=== PATIENT | male | born 1965 | race Caucasian/White ===

== ENCOUNTER 2016-08-07 07:31 | Emergency (ER) | payer MEDICAID ==
[~2016-08-07] VITALS: Ht 165.1 cm; Wt 91.5 kg
[~2016-08-07 07:31] MED LIST: ASPI-664 PO; LORA-441 PO
[2016-08-07 07:34] VITALS: Ht 165.1 cm; Wt 91.5 kg
[2016-08-07] MEDS ORDERED: CARB15DR48 LEFT EAR (09:28)
--- NOTE | 2016-08-07 09:33 | ERD ---
ER Documentation Chief Complaint Date/Time DATE: 08/07/16 TIME: 09:29 Chief Complaint LT EAR PAIN CONGESTION X 4DAYS HPI Patient is a 50-year-old male who presents to the emergency department with left ear difficulty hearing. Patient states he started having difficulty hearing 4 days ago. Patient does report using Q-tips. Patient denies any pain. 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 Patient denies any fevers, chills, nausea, vomiting, cough, rhinorrhea, throat pain. ROS All systems reviewed and are negative except as per history of present illness. Medications Home Meds Active Scripts Carbamide Peroxide* (Debrox*) 6.5% - 15 Ml Drops, 10 DROP LEFT EAR BID, #1 BOTTLE Prov:SAHARA GARCÍA PA-C 08/07/16 Lorazepam* (Ativan*) 0.5 Mg Tablet, 0.5 MG PO Q8H Y for ANXIETY, #10 TAB Prov:BEV ANSARI 12/02/15 Aspirin* (Aspirin* EC) 81 Mg Tablet.dr, 81 MG PO DAILY, #30 TAB Prov:DAXA ESPARZA MD 08/18/15 Allergies Allergies: Coded Allergies: No Known Allergies (Verified Allergy, Mild, 08/07/16) PMhx/Soc Medical and Surgical Hx: pt denies Surgical Hx History of Surgery: No Anesthesia Reaction: No Hx Neurological Disorder: No Hx Respiratory Disorders: No Hx Cardiac Disorders: Yes (hypercholesterolemia) Hx Psychiatric Problems: No Hx Miscellaneous Medical Probl: Yes Hx Alcohol Use: Yes (socially) Hx Substance Use: No Hx Tobacco Use: No Smoking Status: Never smoker FmHx Family History: No diabetes Physical Exam Vitals Vital Signs Date Time Temp Pulse Resp B/P Pulse Ox O2 Delivery O2 Flow Rate FiO2 08/07/16 07:34 97.9 68 19 135/66 99 Physical Exam GENERAL: Well-developed, well-nourished male. Appears in no acute distress. HEAD: Normocephalic, atraumatic. No deformities or ecchymosis. EYE: Pupils equal, round, and reactive to light. EOMs intact. No conjunctival erythema. No eye discharge. ENT: Right external ear deformity noted. Left auditory canal noted to have living conserving. Unable to visualize tympanic membrane at this time. Nasal mucosa pink with no discharge. Oropharynx is pink without any tonsillar erythema or exudates. No uvula deviation. No kissing tonsils. NECK: Supple. No meningismus. Normal ROM of the neck. LUNG: Clear to auscultation bilaterally. No rhonchi, wheezing, rales or coarse breath sounds. HEART: Regular rate and rhythm. No murmurs, rubs or gallops. BACK: No midline tenderness. EXTREMITES: Equal pulses bilaterally. No peripheral clubbing, cyanosis or edema. No unilateral leg swelling. NEUROLOGIC: Alert and oriented to person, place and time. Moving all four extremities. 5/5 strength in all extremities. Normal speech. Steady gait. SKIN: Normal color. Warm and dry. No rashes or lesions. Procedures/MDM MEDICAL DECISION MAKING: This is a 50-year-old male who presents with concerns of decreased hearing out of his left ear 4 days. Vital signs were reviewed. Patient was afebrile. Patient was not hypoxic. Ear exam revealed significant cerumen in the left auditory canal. Initially unable to visualize tympanic membrane. Ear lavage was performed using H20/ hydrogen peroxide mix. No trauma or complications were noted. TM was visualized post-irrigation without any erythema or perforation. Patient reported hearing restored. Upon reexamination, tympanic membrane appeared nonbulging, non erythematous. Given these findings, the patient's presentation is most consistent with cerumen impaction of the L ear, resolved. I have a much lower clinical suspicion for otitis externa, acute otitis media, tympanic membrane perforation, mastoiditis, otic barotrauma, TMJ dysfunction. PRESCRIPTIONS: Debrox DISCHARGE: At this time, patient is stable for discharge and outpatient management. I have instructed the patient to follow-up with his/her primary care physician in 1-2 days. I have discussed with the patient the possibility of needing to see a specialist for further workup and diagnostic studies if the pain persists. I have instructed the patient to promptly return to the ER at any time for any new or worsening symptoms including increased pain, fever, swelling, discharge or hearing loss. The patient and/or family expressed understanding of and agreement with this plan. All questions were answered. Home care instructions were provided. Departure Diagnosis: Primary Impression: Cerumen impaction Laterality: left Qualified Code: H61.22 - Impacted cerumen of left ear Condition: Stable Patient Instructions: Cerumen Impaction, Home Care Referrals: COMMUNITY CLINICS YOU HAVE RECEIVED A MEDICAL SCREENING EXAM AND THE RESULTS INDICATE THAT YOU DO NOT HAVE A CONDITION THAT REQUIRES URGENT TREATMENT IN THE EMERGENCY DEPARTMENT. FURTHER EVALUATION AND TREATMENT OF YOUR CONDITION CAN WAIT UNTIL YOU ARE SEEN IN YOUR DOCTORS OFFICE WITHIN THE NEXT 1-2 DAYS. IT IS YOUR RESPONSIBILITY TO MAKE AN APPOINTMENT FOR FOLOW-UP CARE. IF YOU HAVE A PRIMARY DOCTOR --you should call your primary doctor and schedule an appointment IF YOU DO NOT HAVE A PRIMARY DOCTOR YOU CAN CALL OUR PHYSICIAN REFERRAL HOTLINE AT IF YOU CAN NOT AFFORD TO SEE A PHYSICIAN YOU CAN CHOSE FROM THE FOLLOWING [facility] [address] [facility] [employer] [facility]. [facility] [address] [facility]. [facility] [address] [facility] [facility] [address] [facility] [address] [facility]. [facility] [address] [facility]. [facility] YOU HAVE RECEIVED A MEDICAL SCREENING EXAM AND THE RESULTS INDICATE THAT YOU DO NOT HAVE A CONDITION THAT REQUIRES URGENT TREATMENT IN THE EMERGENCY DEPARTMENT. FURTHER EVALUATION AND TREATMENT OF YOUR CONDITION CAN WAIT UNTIL YOU ARE SEEN IN YOUR DOCTORS OFFICE WITHIN THE NEXT 1-2 DAYS. IT IS YOUR RESPONSIBILITY TO MAKE AN APPOINTMENT FOR FOLOW-UP CARE. IF YOU HAVE A PRIMARY DOCTOR --you should call your primary doctor and schedule and appointment IF YOU DO NOT HAVE A PRIMARY DOCTOR YOU CAN CALL OUR PHYSICIAN REFERRAL HOTLINE AT . IF YOU CAN NOT AFFORD TO SEE A PHYSICIAN YOU CAN CHOSE FROM THE FOLLOWING [facility] INSTITUTIONS: [facility] [address] [place] [address] [facility] [address] [place] [address] [facility] [address] [place] [address] Additional Instructions: Call your primary care doctor TOMORROW for an appointment during the next 1-2 days.See the doctor sooner or return here if your condition worsens before your appointment time. SAHARA GARCÍA PA-C August 07, 2016 09:33
[2016-08-07 10:20] VITALS: BP 139/69; PULSE 77; RESP 18
== END 2016-08-07 10:21 | disposition home or self-care (01) ==
LOC: FTE 07:31
DX: H61.22 Impacted cerumen, left ear (principal)
CPT/HCPCS: 69209; Z7502

== ENCOUNTER 2016-11-10 11:41 | Emergency (ER) | payer MEDICAID ==
[~2016-11-10] VITALS: Ht 167.6 cm; Wt 87.5 kg
[~2016-11-10 11:41] MED LIST changes: +CARB15DR50 LEFT EAR
[2016-11-10 11:44] VITALS: Ht 167.6 cm; Wt 87.5 kg
[2016-11-10] MEDS ORDERED: IPRATROPIUM (NEB) 0.5 MG/2.5 ML AMP NEB STA (12:02)
[2016-11-10] MEDS ORDERED: ALBUTEROL 0.083% (NEB) 2.5 MG/3 ML AMP NEB STA (12:02)
[2016-11-10 12:31] LABS: BASOPHILS % 0.4 % (0.0-2.0); EOSINOPHILS % 0.6 % (0.0-7.0); HEMATOCRIT 41.8 % (42.0-52.0); HEMOGLOBIN 14.8 g/dl (14.0-18.0); LYMPHOCYTES # 2.4 10^3/ul (0.8-2.9); LYMPHOCYTES % 34.1 % (15.0-51.0); MEAN CORPUSCULAR HEMOGLOBIN 31.5 pg (29.0-33.0); MEAN CORPUSCULAR HGB CONC 35.4 g/dl (32.0-37.0); MEAN CORPUSCULAR VOLUME 88.9 fl (82.0-101.0); MEAN PLATELET VOLUME 9.6 fl (7.4-10.4); MONOCYTE # 0.3 10^3/ul (0.3-0.9); NEUTROPHILS % 60.8 % (39.0-77.0); PLATELET COUNT 254 10^3/UL (140-415); WHITE BLOOD COUNT 6.9 10^3/ul (4.8-10.8)
--- NOTE | 2016-11-10 12:53 | RADRPT ---
PROCEDURE: XR Chest. CLINICAL INDICATION: 51-year-old male with chest pain. TECHNIQUE: Single frontal view of the chest was obtained. COMPARISON: None FINDINGS: The soft tissues are normal. The bony elements are normal. The heart, cardiomediastinal silhouette and hilar structures are normal. The pulmonary vasculature is normal. There is a left-sided aorta. The lungs are clear. The costophrenic angles are normal. IMPRESSION: 1. Normal chest x-ray. RPTAT:AAJJ Physician Agnes Date Time Electronically viewed and signed by Physician Agnes on 11/10/2016 12:53 EVAN/
[2016-11-10 12:54] LABS: ANION GAP 15 (8-16); BLOOD UREA NITROGEN 12 mg/dl (7-20); CALCIUM 9.1 mg/dl (8.4-10.2); CARBON DIOXIDE 26 mmol/L (21-31); CHLORIDE 101 mmol/L (97-110); CREATININE 0.83 mg/dl (0.61-1.24); GLUCOSE 203 mg/dl (70-220); SODIUM 138 mmol/L (135-144)
[2016-11-10 13:05] LABS: TROPONIN-I < 0.012 ng/ml (0.00-0.12)
[2016-11-10] MEDS ORDERED: ALBU18HF INHALATION (13:09)
[2016-11-10 13:16] VITALS: BP 140/68; PULSE 78; RESP 18
--- NOTE | 2016-11-10 13:16 | ERD ---
ER Documentation Chief Complaint Date/Time DATE: 11/10/16 TIME: 13:13 Chief Complaint Complains of chest pain that radiates to the back x 1 week HPI conveyor maintenance mechanic used. 51-year-old male no significant past medical history presents with shortness of breath. 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 The patient describes at least 3 months if not longer of on-and-off shortness of breath usually when he is outside or in hot weather. He denies any exertional symptoms no pleuritic pain. He states that in the past he has been told he might have asthma. He is a non-smoker. No recent fevers or chills no weight loss no hemoptysis. Patient only has minimal symptoms currently. The patient had a cardiac workup at [facility] in May including a stress test which was negative. ROS All systems reviewed and are negative except as per history of present illness. Medications Home Meds Active Scripts Albuterol Sulfate* (Ventolin HFA*) 18 Gm Hfa.aer.ad, 2 PUFF INHALATION Q4H, #1 INHALER Prov:AMAYA SHIPMAN MD 11/10/16 Aspirin* (Aspirin* EC) 81 Mg Tablet.dr, 81 MG PO DAILY, #30 TAB Prov:DAXA ESPARZA MD 08/18/15 Discontinued Scripts Carbamide Peroxide* (Debrox*) 6.5% - 15 Ml Drops, 10 DROP LEFT EAR BID, #1 BOTTLE Prov:SAHARA GARCÍA PA-C 08/07/16 Lorazepam* (Ativan*) 0.5 Mg Tablet, 0.5 MG PO Q8H Y for ANXIETY, #10 TAB Prov:BEV ANSARI 12/02/15 Allergies Allergies: Coded Allergies: No Known Allergies (Verified Allergy, Mild, 11/10/16) PMhx/Soc History of Surgery: No Anesthesia Reaction: No Hx Neurological Disorder: No Hx Respiratory Disorders: No Hx Cardiac Disorders: Yes (hypercholesterolemia) Hx Psychiatric Problems: No Hx Miscellaneous Medical Probl: Yes Hx Alcohol Use: Yes (socially) Hx Substance Use: No Hx Tobacco Use: No Smoking Status: Never smoker FmHx Family History: No diabetes Physical Exam Vitals Vital Signs Date Time Temp Pulse Resp B/P Pulse Ox O2 Delivery O2 Flow Rate FiO2 11/10/16 12:14 82 18 96 21 11/10/16 12:12 Nasal Cannula 11/10/16 11:44 98.4 90 20 141/80 97 Physical Exam General: Well developed, well nourished, no acute distress Head: Normocephalic, atraumatic. Eyes: Pupils equally reactive, EOM intact ENT: Moist mucous membranes Neck: Supple, no lymphadenopathy Respiratory: Lungs clear bilaterally, no distress Cardiovascular: RRR, no murmurs, rubs, or gallops Abdominal: Soft, non-tender, non-distended, no peritoneal signs : Deferred MSK: No edema, no unilateral swelling, 5/5 strength Neurologic: Alert and oriented, moving all extremities, normal speech, no focal weakness, no cerebellar signs Skin: No rash Psych: Normal mood Result Diagram: 11/10/16 1208 11/10/16 1208 Results 24 hrs Laboratory Tests Test 11/10/16 12:08 White Blood Count 6.910^3/ul Red Blood Count 4.7010^6/ul Hemoglobin 14.8g/dl Hematocrit 41.8% Mean Corpuscular Volume 88.9fl Mean Corpuscular Hemoglobin 31.5pg Mean Corpuscular Hemoglobin Concent 35.4g/dl Red Cell Distribution Width 12.0% Platelet Count 86431^3/UL Mean Platelet Volume 9.6fl Neutrophils % 60.8% Lymphocytes % 34.1% Monocytes % 4.0% Eosinophils % 0.6% Basophils % 0.4% Nucleated Red Blood Cells % 0.0/100WBC Neutrophils # (Manual) 410^3/ul Lymphocytes # 2.410^3/ul Monocytes # 0.310^3/ul Eosinophils # 0.010^3/ul Basophils # 0.010^3/ul Nucleated Red Blood Cells # 0.010^3/ul Sodium Level 138mmol/L Potassium Level 4.0mmol/L Chloride Level 101mmol/L Carbon Dioxide Level 26mmol/L Anion Gap 15 Blood Urea Nitrogen 12mg/dl Creatinine 0.83mg/dl Glucose Level 203mg/dl Calcium Level 9.1mg/dl Troponin I < 0.012ng/ml Current Medications Medications (Trade) Dose Ordered Sig/Christina Route PRN Reason Start Time Stop Time Status Last Admin Dose Admin Albuterol (Proventil 0.083% (Neb)) 2.5 mg ONCE STAT NEB 11/10/16 12:02 11/10/16 12:03 DC 11/10/16 12:11 Ipratropium [place] (Atrovent 0.02% (Neb)) 0.5 mg ONCE STAT NEB 11/10/16 12:02 11/10/16 12:03 DC 11/10/16 12:11 Procedures/MDM EKG, MONITORS, & DIAGNOSTIC IMAGING: EKG: I reviewed and interpreted a 12-lead EKG. Rhythm: Normal sinus rhythm Ectopy: None Intervals: No abnormalities ST segments: No elevations or depressions T waves: No contiguous inversions Chest x-ray: I reviewed and interpreted a 1 view of the chest Mediastinum: No enlargement Cardiac silhouette: No cardiomegaly Airspace: Clear lung acuna bilaterally without evidence of pneumothorax Bones: No evidence of fracture LAB INTERPRETATION: Negative troponin MEDICAL DECISION MAKING: The patient has intermittent shortness of breath that is nonexertional and usually brought on by warm weather. Unclear etiology but consider possible reactive airway disease versus asthma. However, the patient has clear lungs currently. No clinical signs or symptoms concerning for DVT or pulmonary embolism. The patient had appropriate cardiac screening and risk stratification including provocative testing in May which is reported to be negative. Given my very low clinical concern for cardiac etiology I believe an EKG and single troponin is appropriate. The patient has a low heart score and therefore low missed adverse cardiac event rate. I do not believe that serial troponins or hospitalizations are appropriate at this time given the risk of false positive testing and the fact that the patient recently had negative risk stratification. ER COURSE: The patient was given a breathing treatment. He has subjective improvement. The patient will be started on an inhaler at home as needed. 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 I kept the patient and/or family informed of laboratory and diagnostic imaging results throughout the emergency room course. DISPOSITION PLAN: We discussed follow up with the patient's primary care doctor within 24 to 48 hours as needed. We also discussed return to the emergency room for worsening symptoms or worsening condition. Outpatient referral: [None required] Discharge Medications: Albuterol Departure Diagnosis: Primary Impression: Shortness of breath Condition: Stable Patient Instructions: Coping with Shortness of Breath: Controlling Stress Referrals: [facility] Usted se donnelly hecho un examen mdico de control que le indica que no est en js condicin que requiera tratamiento urgente en el Departamento de Emergencia. Un estudio ms profundo y el tratamiento de bella condicin pueden esperar sin ningn riesgo hasta que usted sea atendida/o en el consultorio de bella mdico o js cl lucila. Es responsabilidad suya arreglar js emilee para el seguimiento del cristian. MANEJO DE CONDICIONES NO URGENTES EN EL FUTURO 1) Si usted tiene un mdico de atencin primaria: Usted debera llamar a bella mdico de atencin primaria antes de venir al departamento de emergencia. Despus de las horas de consultorio, bella doctor o bella asociado/a est disponible por telfono. El mdico o enfermero de crystal en el servicio telefnico puede asesorarle por eddie medio para atender el problema, o cristian contrario se puede programar js emilee. 2) Si usted no tiene un mdico de atencin primaria: Llame al mdico o clnica de referencia que aparece abajo delfino las horas de consultorio para hacer js emilee para que le vean. CLINICAS: [facility] [phone] [facility] [phone] [facility] [phone] [address] [facility]. [facility] [phone] [address] [facility] [address] [place] [id number] [phone] [facility]. [phone] [address] [facility] () Usted se donnelly hecho un examen mdico de control que le indica que no est en js condicin que requiera tratamiento urgente en el Departamento de Emergencia. Un estudio ms profundo y el tratamiento de bella condicin pueden esperar sin ningn riesgo hasta que usted sea atendida/o en el consultorio de bella mdico o js cl lucila. Es responsabilidad suya arreglar js emilee para el seguimiento del cristian. MANEJO DE CONDICIONES NO URGENTES EN EL FUTURO 1) Si usted tiene un mdico de atencin primaria: Usted debera llamar a bella mdico de atencin primaria antes de venir al departamento de emergencia. Despus de las horas de consultorio, bella doctor o bella asociado/a est disponible por telfono. El mdico o enfermero de crystal en el servicio telefnico puede asesorarle por eddie medio para atender el problema, o cristian contrario se puede programar js emilee. 2) Si usted no tiene un mdico de atencin primaria: Llame al mdico o condado institucions de referencia que aparece abajo delfino las horas de consultorio para hacer js emilee para que le vean. SI USTED NO PUEDE PAGAR PARA PAUL UN MEDICO puede ir a: [facility] [address] [place] [address] [facility] [address] [place] [address] [facility] [address] [place] [address] [address] [facility] [address] [place] [address] [facility] URGENT [facility]/SPECIALTIES Pulmonology Additional Instructions: Llame al doctor nombrado abajo (Referral Sources) MAANA y damien js EMILEE PARA DENTRO DE SJ SEMANA. Dgale a la secretaria que nosotros le instruimos hacer esta emilee.Avise o llame si bella condicin se empeora antes de la emilee. AMAYA SHIPMAN MD Nov 10, 2016 13:16
== END 2016-11-10 13:18 | disposition home or self-care (01) ==
LOC: E/R 11:41
DX: R06.02 Shortness of breath (principal); Z79.82 Long term (current) use of aspirin
CPT/HCPCS: 36415; 71010; 80048; 84484; 85025; 93005; 94664; Z7502; Z7610